=== PATIENT | male | born 1940 | race Caucasian/White ===

== ENCOUNTER 2020-08-25 07:23 | Inpatient (IN) | payer MEDICARE, OTHER ==
[~2020-08-25] VITALS: Ht 177.8 cm; Wt 97.2 kg
[~2020-08-25 07:23] MED LIST: CIPRO500 MG PO; DIABETIC TUSSI PO; GABA100 PO; INSLIS75I SC; INSULANPEN SC; LOSA50 PO; Zithromax250 MG PO
[2020-08-25] MEDS ORDERED: Ventolin/Prove6.7 GM INH (07:43)
[2020-08-25] MEDS ORDERED: AMLODIPINE BESYL5 MG PO (07:44)
[2020-08-25] MEDS ORDERED: CELEXA10 MG PO (07:45)
[2020-08-25] MEDS ORDERED: GABA100 PO (07:46)
[2020-08-25] MEDS ORDERED: TAMSULOSIN HCL0.4 M1 PO (07:46)
[2020-08-25] MEDS ORDERED: BASAGLAR K100 UNIT/8 SC (07:47)
[2020-08-25] MEDS ORDERED: LEVO-T100 MC1 PO (07:48)
[2020-08-25 08:18] LABS: BASOPHILS ABSOLUTE AUTO 0.01 K/mm3 (0.00-0.23); BASOPHILS PERCENT AUTO 0 % (0-2); EOSINOPHILS PERCENT AUTO 0 % (0-6); Hematocrit 37.8 % (37.0-53.0); Hemoglobin 12.3 g/dL (13.5-17.5); IMMATURE GRAN ABSOLUTE AUTO 0.04 K/mm3 (0.00-0.10); IMMATURE GRAN PERCENT AUTO 0 % (0-1); LYMPHOCYTES PERCENT AUTO 4 % (21-46); MONOCYTES ABSOLUTE AUTO 0.57 K/mm3 (0.16-1.47); MONOCYTES PERCENT AUTO 5 % (4-13); Mean Corpuscular HGB 30.1 pg (26.0-34.0); Mean Corpuscular HGB Conc 32.5 g/dL (31.5-36.5); Mean Corpuscular Volume 92 fL (80-100); Mean Platelet Volume 11.6 fL (9.1-12.4); NEUTROPHILS ABSOLUTE AUTO 9.96 K/mm3 (1.96-9.15); NEUTROPHILS PERCENT AUTO 91 % (41-73); Platelet Count 133 K/mm3 (150-400); RDW Coefficient Variation 14.4 % (11.7-14.2); RDW Standard Deviation 48.8 fL (35.1-46.3); Red Blood Cell Count 4.09 M/mm3 (4.30-5.90); White Blood Cell Count 10.98 K/mm3 (4.00-11.30)
[2020-08-25 08:56] LABS: Albumin, Blood 2.7 g/dL (3.4-5.0); Albumin/Globulin Ratio 0.7 (0.8-1.8); Bilirubin, Total 0.9 mg/dL (0.1-1.0); Bun/Creatinine Ratio 16.4 (12.0-20.0); Calcium, Blood 9.9 mg/dL (8.5-10.1); Creatinine, Blood 2.14 mg/dL (0.60-1.20); Potassium, Blood 4.1 mmol/L (3.5-5.5); Thyroid Stimulating Hormone 3.91 uIU/mL (0.360-4.800); Total Protein, Blood 6.7 g/dL (6.4-8.2)
[2020-08-25 09:11] LABS: Influenza A, PCR NEGATIVE (NEGATIVE); Influenza B, PCR NEGATIVE (NEGATIVE); Resp Syncytial Virus, PCR NEGATIVE (NEGATIVE); SARS-Cov-2 (COVID-19) PCR, MMC NEGATIVE (NEGATIVE)
[2020-08-25 09:14] LABS: Troponin I 2.35 ng/mL (0.000-0.040)
[2020-08-25 09:49] LABS: Creatine Kinase MB 29.6 ng/mL (0.0-3.6)
[2020-08-25 09:59] LABS: Creatine Kinase MB Index 1.7 (0.0-4.0)
[2020-08-25 10:59] LABS: International Normalized Ratio 0.99; Prothrombin Time Results 10.6 Sec (9.7-11.5)
--- NOTE | 2020-08-25 11:43 | NUR ---
Echocardiogram using 0.50ml of Definity contrast performed.
--- NOTE | 2020-08-25 14:07 | NUR ---
ADMIT HX UNABLE TO INPUT FULL ADMIT HX D/T PT LETHARGY. PT UNABLE TO ANSWER QUESTIONS AT THIS TIME.
--- NOTE | 2020-08-25 15:16 | NUR ---
PHYSICIAN UPDATED PHYSICIAN UPDATED THAT PT REFUSING SECOND IV ACCESS AT THIS TIME AND INFORMED OF CRITICAL LAB VALUE. INSTRUCTED TO HOLD HEPARIN GTT AT THIS TIME AND ADMINISTER IV FLUIDS PER ORDERS. NO OTHER ORDERS AT THIS TIME.
--- NOTE | 2020-08-25 17:52 | NUR ---
UPDATE PHYSICIAN UPDATED TO RUN CURRENT NS BAG AT WO AND THEN RESTART HEPARIN GTT. SEE EMAR.
--- NOTE | 2020-08-25 18:30 | NUR ---
SHIFT SUMMARY PT ALERT AND ORIENTED X 4. CONFUSED AT TIMES. AGGITATED AT TIMES. REFUSED INSERTION OF SECOND IV. PHYSICIAN NOTIFIED. BED ALARM IN PLACE. PT ABLE TO TURN SELF IN BED. DEPENDS IN PLACE. URINAL AT BEDSIDE. HR STABLE. BP STABLE. HEPARIN GTT, SEE EMAR. OXYGEN SATURATION MAINTAINED ABOVE 95% ON RA. PHYSICIAN NOTIFIED OF CRITICAL TROPONIN. SEE EHR. NO CP OR PRESSURE. WILL CONTINUE TO MONITOR UNTIL REPORT GIVEN TO NIGHTSHIFT RN.
--- NOTE | 2020-08-25 21:26 | NUR ---
CALLED [facility] REGARDING CRITICAL VALUE FOR TROPONIN OF 3.980. ORDERS WERE TO REDRAW LABS 6-8 HOURS AFTER LAST DRAW.
--- NOTE | 2020-08-25 22:48 | NUR ---
TALKED TO BEAU SILK PRESSER REGARDING REDNESS, ITCH, AND PAIN IN INGUNAL AND UNDER FOLDS. VERBAL ORDER FOR MICONAZORB GIVEN BID, PRN.
[2020-08-26 02:40] LABS: BASOPHILS ABSOLUTE AUTO 0.03 K/mm3 (0.00-0.23); BASOPHILS PERCENT AUTO 0 % (0-2); EOSINOPHILS PERCENT AUTO 1 % (0-6); Hematocrit 30.8 % (37.0-53.0); IMMATURE GRAN ABSOLUTE AUTO 0.03 K/mm3 (0.00-0.10); IMMATURE GRAN PERCENT AUTO 0 % (0-1); LYMPHOCYTES ABSOLUTE AUTO 1.16 K/mm3 (0.84-5.20); LYMPHOCYTES PERCENT AUTO 13 % (21-46); MONOCYTES ABSOLUTE AUTO 0.64 K/mm3 (0.16-1.47); MONOCYTES PERCENT AUTO 7 % (4-13); Mean Corpuscular HGB Conc 32.5 g/dL (31.5-36.5); Mean Corpuscular Volume 93 fL (80-100); NEUTROPHILS ABSOLUTE AUTO 7.31 K/mm3 (1.96-9.15); NEUTROPHILS PERCENT AUTO 79 % (41-73); Platelet Count 142 K/mm3 (150-400); RDW Coefficient Variation 14.5 % (11.7-14.2); RDW Standard Deviation 49.5 fL (35.1-46.3); Red Blood Cell Count 3.33 M/mm3 (4.30-5.90); White Blood Cell Count 9.27 K/mm3 (4.00-11.30)
[2020-08-26 02:58] LABS: Albumin, Blood 2.1 g/dL (3.4-5.0); Albumin/Globulin Ratio 0.6 (0.8-1.8); Bilirubin, Total 0.7 mg/dL (0.1-1.0); Bun/Creatinine Ratio 21.1 (12.0-20.0); Creatinine, Blood 2.09 mg/dL (0.60-1.20); Globulin, Blood 3.3 g/dL (2.2-4.0); Magnesium, Blood 1.7 mg/dL (1.6-2.4); Potassium, Blood 4.2 mmol/L (3.5-5.5); Total Protein, Blood 5.4 g/dL (6.4-8.2)
--- NOTE | 2020-08-26 03:30 | NUR ---
CRITICAL APTT VALUE; CALLED [facility]; ORDER TO STOP HEPARIN; STOPPED AT 0320. MARYDER TO HOLD HEPARIN DRIP FOR 1 HOURS THEN RESTART AT 13 UNITS/KG/HR OR 24.4ML/HR.
--- NOTE | 2020-08-26 05:47 | NUR ---
SHIFT SUMMARY PT IS ALERT WITH SOME CONFUSION AND FORGETFUL AT SOMETIMES. PT IS AGITATED MOST TIMES AND REFUSING AND RESISTIVE TO CARE. YELLING AND CURSING AT STAFF. PT IS REFUSING BEING REPOSITIONED. HEAT PAD WAS APPLIED TO PTS BACK DUE TO SORE BACK BUT DOES NOT WANT TO BE TURNED. PT USES URINAL WITH SMALL AMOUNTS OF K[place] URINE, ATTENDS IN PLACE. REDNESS IN SCROTUM AREA, REDNESS AND ABRASIONS IN FOLDS UNDER BELLY. ABDOMEN VERY DISTENDED. VITALS ARE STABLE AND SATS >92% ON ROOM AIR. LEGS ARE VERY WEAK AND HAS TROUBLE LIFTING THEM PLACING PILLOWS UNDER LEGS. HEPARIN DRIP IS INFUSING.
--- NOTE | 2020-08-26 06:38 | NUR ---
PTS STATES HAVING TROUBLE BREATHING. SATS ARE 98% ON ROOM AIR. BP 143/80 HR 94. LUNG SOUNDS ARE DIMINISHED. RESP 24.
--- NOTE | 2020-08-26 07:37 | NUR ---
pt laying in bed, awake a/ox, was reported he will have some periods of confusion, not cooperative with care, follows commands at times, lungs are dim t/o, he wasn't taking deep breaths, is on r/a, reports productive cough, hrr, tele in place running sr with occ pvc, no edema noted, ppp faint, radial is strong, iv to lac infusing heperin gtt as ordered, btx, hypoactive, abd very distendeed, semi firm, denies discomfort, voids vis urinal, attends in place, reports some pink under folds, but pt isn't cooperative with complete assessment, unable to move right foot, or wont, argumentative about everything asked of him, pp faint, tommy, call light in reach.
--- NOTE | 2020-08-26 11:03 | NUR ---
Pt resting in bed upon arrival. Pt reports intermittent pain in his left chest. Pt unable to rate pain on scale of 1-10. FLACC score of 5/10 as evidenced by groaning, facial grimacing, and Pt holding his breath when pain is occuring. Pt appears willing for conversation. Engaged in therapeutic listening as Pt reports concerns regarding being in the hospital away from his "puppy". Pt reports his caregiver is caring for the dog while in the hospital. Continued therapeutic listening. Engaged in discussion regarding code status. Educated Pt on life sustaining measures including risk factors and implications of CPR. Pt reports wishes are to remain a full code. Pt states "I have grandbabies to live for". Continued therapeutic listening as Pt shares his jessica for his grand children. Pt briefly discusses negative feelings for his daughter. Pt also reports having other children but has not had contact with them in quite some time. Pt requesting Tylenol for pain. Ended visit to allow Pt to rest. Spoke with Bedside EVELIA Merrill, discussed case, and relayed Pt's request for Tylenol. Palliative Care will remain available.
--- NOTE | 2020-08-26 17:57 | NUR ---
pt has been made medical status with tele, report was given to Renea ALTAMIRANO. pt being taken to 356 via bed with all his belongings with landscaper in attendence.
--- NOTE | 2020-08-26 19:23 | NUR ---
1805 RECEIVED PT TO RM 356 VIA GURNEY FROM PCU 11. PT ABLE TO STAND PIVOT TO TX TO BED. PT WEAK AND UNSTEADY. PT IS DIFFICULT TO GET TO BE COMPLIANT WITH CARE. BED ALARM SET FOR SAFETY. REQUESTED URINAL WHEN GETTING TO RM; GIVEN. BUT THEN PT OOB, SETTING BED ALARM OFF, WANTING TO GO TO [facility]. BSC PROVIDED, PT UNABLE TO AMBULATE AT ALL. PER REPORT, PT USES MOTORIZED SCOOTER AT HOME TO GET AROUND. PT ALSO REPORTED THAT HE HAD A 4 PRONG CANE IN PCU. NOTIFIED PCU X3, WITH NO RESULTS. THIS RN WENT DOWN TO DIRTY RM TO LOOK FOR CANE; DID NOT SEE CANE IN RM. PT VERY UPSET THAT CANE WAS NOT FOUND DOWN THERE. REPORT GIVEN TO ONCOMING RN.
--- NOTE | 2020-08-27 06:38 | NUR ---
SHIFT SUMMARY- PT. TRANSER FROM PCU YESTERDAY DURING DAY SHIFT. A&O, FORGETFUL AT TIMES. HAD NO COMPLAINTS OF PAIN OR DISCOMFORT T/O THE NIGHT. PT. VERY WEAK, 1-2 ASSIST TO BSC W/WALKER, USES URINAL IN BED W/ASSISTANCE. ON RA, VSS. PT. ANTICIPATING D/C TO HOME TODAY. CALL LIGHT WITHIN REACH, SIDE RAILS UPX2, AND BED ALARM ON FOR SAFETY. WILL CONT TO MONITOR.
[2020-08-27] MEDS ORDERED: ATOR40TA PO (11:23)
[2020-08-27] MEDS ORDERED: Aspirin EC81 MG PO (11:23)
[2020-08-27] MEDS ORDERED: FURO20 PO (11:24)
[2020-08-27] MEDS ORDERED: METO25ER PO (11:24)
[2020-08-27] MEDS ORDERED: POTA10T PO (11:24)
--- NOTE | 2020-08-27 14:10 | NUR ---
DISCHARGE PT DISCHAGED TO HOME WITH HOME HEALTH. PT FRIEND PICKED HIM UP TODAY VIA WC. PT IV DC'D. PT VERY FRSUTRATED ABOUT HIS CANE THAT WAS NEVER FOUND AT PCU OR ED. THIS RN CALLED THE PCU AND ER TODAY, BUT THEY DONT HAVE THE PATIENT CANE. PHYSICAL THERAPIST PROVIDED A CANE FOR THIS PT. PT GIVEN INSTRUCTION, PROVIDED DISCHARGE PACKET. PT EDUCATED ABOUT HIS MEDICATIONS. PT EDUCATED FOR ANY CONCERNS FU WITH HIS PCP, BUT HE DOES NOT SEEM TO KNOW THE NAME OF HIS PCP. EDUCATED ABOUT IF WORSENING SYMPTOMS OR CONCERNS GO TO ER.
== END 2020-08-27 13:58 | disposition home health service (06) | DRG 281 ==
LOC: ER 07:23 → PCU 10:24 → MEDS 08-26 18:05
PROVIDERS: Emergency Medicine; Nurse Practitioner Acute Care; ADMIT Internal Medicine
DX: I21.4 Non-ST elevation (NSTEMI) myocardial infarction (principal); I50.22 Chronic systolic (congestive) heart failure; M62.82 Rhabdomyolysis; N17.9 Acute kidney failure, unspecified; I13.0 Hypertensive heart and chronic kidney disease with heart failure and stage 1 through stage 4 chronic kidney disease, or unspecified chronic kidney disease; Z20.822 Contact with and (suspected) exposure to COVID-19; D69.6 Thrombocytopenia, unspecified; N18.9 Chronic kidney disease, unspecified; E11.22 Type 2 diabetes mellitus with diabetic chronic kidney disease; N40.0 Benign prostatic hyperplasia without lower urinary tract symptoms; E78.5 Hyperlipidemia, unspecified; E03.9 Hypothyroidism, unspecified; J44.9 Chronic obstructive pulmonary disease, unspecified; W19.XXXA Unspecified fall, initial encounter; E66.9 Obesity, unspecified; Z68.28 Body mass index [BMI] 28.0-28.9, adult; Z91.14 Patient's other noncompliance with medication regimen; Z79.4 Long term (current) use of insulin; Z87.891 Personal history of nicotine dependence
CPT/HCPCS: 0241U; 36415; 71045; 72070; 72100; 80053; 82550; 82553; 82947; 83735; 83880; 84443; 84484; 85025; 85610; 85730; 93005; 93010; 96365; 96375; 96376; 97110; 97162; 97166; 97530; 97535; 99285-25; A9270; C8929; J1644; J1940; J7030; Q9957

== ENCOUNTER 2020-08-30 18:52 | Emergency (ER) | payer MEDICARE, OTHER ==
[~2020-08-30] VITALS: Ht 177.8 cm; Wt 90.7 kg
== END 2020-08-30 23:48 | disposition left against medical advice (07) ==
LOC: ER 18:52
DX: R53.1 Weakness (principal); R14.0 Abdominal distension (gaseous); Z79.899 Other long term (current) drug therapy; Z79.4 Long term (current) use of insulin
CPT/HCPCS: 36415; 71045; 80053; 81001; 83690; 83735; 84484; 93005; 93010; 99285-25

== ENCOUNTER 2020-09-08 05:39 | Emergency (ER) | payer MEDICARE, OTHER ==
[~2020-09-08] VITALS: Ht 177.8 cm; Wt 90.7 kg
[~2020-09-08 05:39] MED LIST changes: +AMLODIPINE BESYL5 MG PO; +ATOR40TA PO; +Aspirin EC81 MG PO; +BASAGLAR K100 UNIT/8 SC; +CELEXA10 MG PO; +FURO20 PO; +LEVO-T100 MC1 PO; +METO25ER PO; +POTA10T PO; +TAMSULOSIN HCL0.4 M1 PO; +Ventolin/Prove6.7 GM INH
[2020-09-08 06:22] LABS: BASOPHILS ABSOLUTE AUTO 0.03 K/mm3 (0.00-0.23); BASOPHILS PERCENT AUTO 0 % (0-2); EOSINOPHILS PERCENT AUTO 1 % (0-6); Hematocrit 33.8 % (37.0-53.0); Hemoglobin 10.7 g/dL (13.5-17.5); IMMATURE GRAN ABSOLUTE AUTO 0.02 K/mm3 (0.00-0.10); IMMATURE GRAN PERCENT AUTO 0 % (0-1); LYMPHOCYTES ABSOLUTE AUTO 0.62 K/mm3 (0.84-5.20); LYMPHOCYTES PERCENT AUTO 7 % (21-46); MONOCYTES ABSOLUTE AUTO 0.47 K/mm3 (0.16-1.47); MONOCYTES PERCENT AUTO 5 % (4-13); Mean Corpuscular HGB 29.8 pg (26.0-34.0); Mean Corpuscular HGB Conc 31.7 g/dL (31.5-36.5); Mean Corpuscular Volume 94 fL (80-100); Mean Platelet Volume 12.9 fL (9.1-12.4); NEUTROPHILS ABSOLUTE AUTO 8.28 K/mm3 (1.96-9.15); NEUTROPHILS PERCENT AUTO 87 % (41-73); Platelet Count 138 K/mm3 (150-400); RDW Coefficient Variation 14.5 % (11.7-14.2); RDW Standard Deviation 49.4 fL (35.1-46.3); Red Blood Cell Count 3.59 M/mm3 (4.30-5.90); White Blood Cell Count 9.52 K/mm3 (4.00-11.30)
[2020-09-08 06:34] LABS: Albumin, Blood 2.8 g/dL (3.4-5.0); Albumin/Globulin Ratio 0.7 (0.8-1.8); Bilirubin, Total 0.8 mg/dL (0.1-1.0); Bun/Creatinine Ratio 13.2 (12.0-20.0); Calcium, Blood 9.7 mg/dL (8.5-10.1); Creatinine, Blood 2.27 mg/dL (0.60-1.20); Globulin, Blood 4.2 g/dL (2.2-4.0); Potassium, Blood 4.6 mmol/L (3.5-5.5); Troponin I 0.227 ng/mL (0.000-0.040)
[2020-09-08] MEDS ORDERED: NITR.4SL SL (07:50)
== END 2020-09-08 11:05 | disposition home or self-care (01) ==
LOC: ER 05:39
PROVIDERS: Emergency Medicine
DX: R07.9 Chest pain, unspecified (principal); I50.9 Heart failure, unspecified; J44.9 Chronic obstructive pulmonary disease, unspecified; Z79.899 Other long term (current) drug therapy
CPT/HCPCS: 71045; 80053; 83880; 84484; 85025; 93005; 93010; 96374; 99285-25; J1940

== ENCOUNTER 2020-09-09 22:54 | Emergency (ER) | payer MEDICARE, OTHER ==
[~2020-09-09] VITALS: Ht 177.8 cm; Wt 86.2 kg
[~2020-09-09 22:54] MED LIST changes: +NITR.4SL SL
== END 2020-09-10 06:10 | disposition home or self-care (01) ==
LOC: ER 22:54
DX: M25.552 Pain in left hip (principal); I10 Essential (primary) hypertension; Z79.4 Long term (current) use of insulin; Z79.82 Long term (current) use of aspirin; Z79.899 Other long term (current) drug therapy
CPT/HCPCS: 73501; 96374; 96375; 99283-25; J2250; J2270; J2405

== ENCOUNTER 2020-09-13 17:38 | Observation (INO) | payer MEDICARE, OTHER ==
[~2020-09-13] VITALS: Ht 165.1 cm; Wt 93.1 kg
[2020-09-13 19:46] LABS: BASOPHILS ABSOLUTE AUTO 0.03 K/mm3 (0.00-0.23); BASOPHILS PERCENT AUTO 0 % (0-2); EOSINOPHILS ABSOLUTE AUTO 0.16 K/mm3 (0.00-0.68); EOSINOPHILS PERCENT AUTO 2 % (0-6); Hematocrit 28.7 % (37.0-53.0); Hemoglobin 9.3 g/dL (13.5-17.5); IMMATURE GRAN ABSOLUTE AUTO 0.02 K/mm3 (0.00-0.10); IMMATURE GRAN PERCENT AUTO 0 % (0-1); LYMPHOCYTES ABSOLUTE AUTO 0.73 K/mm3 (0.84-5.20); LYMPHOCYTES PERCENT AUTO 11 % (21-46); MONOCYTES ABSOLUTE AUTO 0.55 K/mm3 (0.16-1.47); MONOCYTES PERCENT AUTO 8 % (4-13); Mean Corpuscular HGB 29.6 pg (26.0-34.0); Mean Corpuscular HGB Conc 32.4 g/dL (31.5-36.5); Mean Corpuscular Volume 91 fL (80-100); NEUTROPHILS ABSOLUTE AUTO 5.29 K/mm3 (1.96-9.15); NEUTROPHILS PERCENT AUTO 78 % (41-73); RDW Coefficient Variation 14.7 % (11.7-14.2); RDW Standard Deviation 48.7 fL (35.1-46.3); Red Blood Cell Count 3.14 M/mm3 (4.30-5.90); White Blood Cell Count 6.78 K/mm3 (4.00-11.30)
[2020-09-13 20:01] LABS: Mean Platelet Volume 13.1 fL (9.1-12.4); Platelet Count 139 K/mm3 (150-400)
[2020-09-13 20:03] LABS: Albumin, Blood 2.6 g/dL (3.4-5.0); Albumin/Globulin Ratio 0.6 (0.8-1.8); Bilirubin, Total 0.6 mg/dL (0.1-1.0); Bun/Creatinine Ratio 14.5 (12.0-20.0); Calcium, Blood 9.8 mg/dL (8.5-10.1); Creatinine, Blood 2.28 mg/dL (0.60-1.20); Potassium, Blood 5.8 mmol/L (3.5-5.5); Total Protein, Blood 6.6 g/dL (6.4-8.2)
[2020-09-13 21:31] LABS: Bun/Creatinine Ratio 13.2 (12.0-20.0); Calcium, Blood 9.3 mg/dL (8.5-10.1); Creatinine, Blood 2.34 mg/dL (0.60-1.20); Potassium, Blood 4.5 mmol/L (3.5-5.5)
--- NOTE | 2020-09-13 23:24 | NUR ---
Transfer report from [facility] COMMUNITY SERVICE TECHNICIAN on 80 year old Male DNR status with Cirrhosis CHF HX of refusing cares. Elevated ammonia level, refused lactulose in ER, refused EKG. Recent DC on 08/27/20 reported. 3 plus pitting edema ascites co abd & le pain . ABD CT done. Await admission.
--- NOTE | 2020-09-14 04:46 | NUR ---
PT admitted to medical floor obs status with liver failure abd pain acute ascites & CHF. He lives at [facility] & he has hx of refusing medical therapy & he refused lab draw this AM. He cusses at staff intermittantly & apololizes afterward.He had 1 episode of acute abd pain relieved by 50 mcg of fentanyl. Severe abd distention, had abd CT in ER. Had refused lactulose for elevated ammonia level & ref EKG. Needs assist with toileting. Incontinent x 1
--- NOTE | 2020-09-14 08:24 | NUR ---
PATIENT REFUSED LATEST LAB DRAW ATTEMPT.
--- NOTE | 2020-09-14 10:27 | NUR ---
Pt sitting on edge of bed upon arrival. Bedside RN Iris offering medications. Pt appears to be drifting off to sleep with eyes closing. Difficult to have conversation at this time. Iris reports Pt recently received pain medication. Will attempt to visit with Pt at a later time. Reviewed chart and discussed case with Dr Hinkle. Admitting provider notes suggest Pt wants to focus on comfort. Attempted to call Pt's daughter Beverly listed as NOK. No voicemail available to leave message. Called and spoke with Pt's caregiver Marta. Marta reports Pt's lives at [facility]. Marta reports providing care for Pt 3 hours and 10 minutes a day 7 days a week. She reports Pt has had multiple falls and has dicussed with staff at [facility]. According to Marta [facility] also feels Pt needs a higher level of care. Marta reports calling Pt's casemanager Karey Benjamin at [facility] reporting Pt's needs. Marta states Pt has been non compliant with his medications since April when she started providing care for him. Pt has not opened his new prescriptions that he D/C home from his last hospital stay. Marta states his PCP Dr Sandy has recommended hospice. Marta reports Pt requires assistance with transfers, ambulation, bathing, and dressing. She states Pt has refused bathing for a month. Pt has not been coming down to facility dining room for meals. Marta also reports Pt has a dog that he holds very dear to him. Marta expresses appreciation of call. PPS 50% ADLs 4/6 Plan: Palliative Care will F/U with Pt regarding goals of care including the option for hospice. Palliative Care will remain available.
--- NOTE | 2020-09-14 13:52 | NUR ---
F/U visit this afternoon. Pt resting in bed with his eyes closed upon arrival. Pt opens his eyes with verbal stimuli. Pt appears painful as evidenced by constant repositioning of buttocks and facial grimacing. Pt reports pain in coccyx area. Pt does not rate pain. Attempted to confirm his wishes that he stated to admitting provider. Pt does not engage in conversation regarding goals of care. Pt appears to be on the cusp of meeting criteria for hospice with his cirrhosis of the liver alone. His medical history, comorbidites, his unwillingness to accept care, and cirrhosis of the liver appears to qualify him for hospice services. Pt would benefit from hospice evaluation upon discharge to assist with determination of meeting criteria. Spoke with Dr Hinkle and discussed case. Dr Hinkle is requesting an ethics consult be placed to assist with determining an appropriate plan of care due to Pt's inability to tell staff his wishes. Called [facility] and spoke with [facility]. Requested contact information for NOK. Cross reports staff member who has this information is unavailable at this time and will have staff member call Palliative Care. Placed Ethics consult per V/O from Dr Hinkle. Palliative Care will remain available.
--- NOTE | 2020-09-14 14:49 | NUR ---
Ethics consult order reviewed and processed. Chart notes perused and conversation facilitated with palliative care regarding the code status, and complex medical history of the principal. He is currently unbefriended, lacks an advance care planning instrument, and is suffering from incapacitation. Per the CLEANING CREW MEMBER's note relating to the principals original ED presentation, and reportedly before his mentation was compromised, the patient emphatically stated his wishes to forgo aggressive or life-saving therapy, and elect for a hospice enrollment. To support the choice, autonomy and dignity of the Mr Deckre, I would recommend that we accomodate him accordingly and without reservation. Thank you for this consult. Clarence Gonzalez Th.D.
--- NOTE | 2020-09-14 19:42 | NUR ---
SHIFT SUMMARY: A&O X 2, IRRITABLE AND REFUSING TREATMENT. C/O SEVERE PAIN IN BILATERAL HIPS AND LESSER PAIN IN VERY DISTENDED ABDOMEN; MEDICATED WITH FENTANYL AND OXYCODONE EARLIER IN THE DAY, WHICH GAVE LITTLE RELIEF. HAS DIFFICULTY FOLLOWING DIRECTIONS. REFUSED ALL MORNING MEDICATION, EVEN WHEN GIVEN ADEQUATE TIME TO TAKE THEM. HAS DIFFICULT TIME FINDING COMFORTABLE POSITION. BECAME AGITATED THIS AFTERNOON WHEN HE NEEDED TO USE BR; GOT PT UP WITH FWW TO BR, BUT IS UNABLE TO STAND FOR VERY LONG, SAT TWICE ON TOILET BUT DID NOT VOID OR HAVE BM. DIFFICULT TO GET HIM BTB, GOT MORE AGITATED THE MORE WE TRIED TO HELP, GETTING UP AND DOWN WITHOUT ASSISTANCE AND NEARLY FALLING. PALLIATIVE CARE VISITED A FEW TIMES TODAY. RECEIVED ORDER THIS AFTERNOON TO PLACE PT ON COMFORT CARE PER HIS WISHES. GAVE ROXANOL AND ATIVAN AND PT WAS ABLE TO REST FOR ~ 2 HOURS.
--- NOTE | 2020-09-15 03:47 | NUR ---
SHIFT SUMMARY: COMFORT CARE STATUS. PT IS A/O TO SELF. UNAWARE OF LIMITATIONS. ATTEMPTS TO GET UP OOB INDEPENDENTLY, PT ATTEMPTS TO STAND W/ASSIST AND IS TOO WEAK TO TAKE STEPS OR DIRECTOR SUPPLY PLACE FOR MORE THAN ABOUT 10 SECONDS. PT ASSISTED BACK TO BED. INCONTINENT OF URINE. ABD LARGE, ROUND, DISTENDED. HOB REMAINS ELEVATED FOR COMFORT. MED FOR PAIN AND AGITATION X 1 W/GOOD RESULTS. BED LOW, BED ALARM ON, SIDE RAILS UP X 3. PT SLEEPING MOST OF THE NIGHT. WCTM.
--- NOTE | 2020-09-15 10:13 | NUR ---
Comfort Care Visit Pt reporting significant pain and unable to verbalize location or pain number. FLACC score of 7/10. Moderate anxiety and mild dyspnea noted. Discussed draining fluid from abdomen with Pt for comfort. Pt is agreeable. Spoke with Dr Salas and discussed case. Dr Salas will place order for paracentesis. Spoke with Bedside RN Johanna, discussed case, and reviewed comfort medications. Johanna will offer Roxanol and Ativan. Palliative Care will remain available for symtom management and supportive visits.
[2020-09-15 11:50] LABS: Source, Urine Catheter
[2020-09-15 11:57] LABS: Bilirubin, Urine Neg (Neg); Blood, Urine 3+ (Neg); Glucose Qualitative, Urine Neg (Neg); Ketones, Urine Neg (Neg); Leukocyte Esterase, Urine Neg (Neg); Nitrite, Urine Neg (Neg); Protein, Urine 4+ (Neg); Urobilinogen, Urine NORM (Normal)
[2020-09-15 12:02] LABS: Appearance, Urine Clear (Clear); Color, Urine Yellow (P-Yellow)
[2020-09-15 12:04] LABS: Bacteria Few /hpf; Granular Casts 0-2 /lpf (0); Squamous Epithelial Cells Few /hpf (Few); White Blood Cells, Urine 0-2 /hpf (0-5)
[2020-09-15 13:50] LABS: International Normalized Ratio 1.01; Prothrombin Time Results 10.9 Sec (9.7-11.5)
--- NOTE | 2020-09-15 18:14 | NUR ---
SHIFT SUMMARY PT AOX1. PLACED COREY CATHETER TODAY- PT TOLERATED WELL AND DRAINING AND PATENT. PT FELT BETTER AFTER. PT ALSO HAD PARACENTESIS TODAY- TOOK OUT 4L OUT. PT MEDICATED PER EMAR. BED IS IN THE LOWEST POSITION AND CALL LIGHT WITHIN REACH
--- NOTE | 2020-09-16 00:31 | NUR ---
COMFORT CARE: PT WAKES UP TO SOUND, TOUCH, OR LIGHTS. TAKES A MINUTE BEFORE BEING ABLE TO ANSWER QUESTIONS. DENIES PAIN OR ANXIETY. HAS DIFFICULTY REMAINING AWAKE OR STAYING FOCUSED WHEN TALKING. PT IS RESTING, EYES CLOSED, SNORING. HOB UP 30 DEGREES FOR COMFORT. F/C PATENT AND DRAINING URINE TO GRAVITY. WCTM.
--- NOTE | 2020-09-16 05:33 | NUR ---
SHIFT SUMMARY: COMFORT CARE STATUS. PT HAS SLEPT THROUGH THE NIGHT. DENIES PAIN AND APPEARS PLEASANT AND CALM WHILE AWAKE. F/C PATENT AND DRAINING CONCENTRATED APPEARING URINE TO GRAVITY. PT REFUSES PO INTAKE TONIGHT. FLUIDS OFFERED AND IN REACH AT BEDSIDE. BED LOW, ALARM ON, SIDE RAILS UP X 3. PT HAS MADE NO ATTEMPTS TO GET UP INDEPENDENTLY. WCTM.
--- NOTE | 2020-09-16 11:09 | NUR ---
PT C/O OF NOT HAVING BOWEL MOVEMENTS, RECEIVED AN ORDER TO GIVE SUPPOSITORY. PT RECEIVED IT.PT CURSING AND FRUSTRATED. TRIED TO EXPLAIN THE PT ABOUT DRINKING WATER AND EDUCATED THE PT ABOUT THE MEDICATION; HOWEVER PT ALERT TO SELF ONLY AND NOT UNDERSTANDING.
--- NOTE | 2020-09-16 15:57 | NUR ---
[facility] Care comfort care visit - Pt sleeping upon entering room. He appears sl restless in sleep. I did not disturb him. Case conferenced with pt's RN, who reports chief c/o pt is constipation. She has given him a suppository and prune juice and will f/u with bowel regime. Discussed other meds and s/s management. CM cont to work on d/c planning per RN. No definite plan or placement in place currently.
--- NOTE | 2020-09-16 17:23 | NUR ---
SHIFT SUMMARY PT ALERT TO SELF ONLY. PT IS A FEEDER, AND BEDREST FOR NOW; NOT ABLE TO TOLERATE WALKING TO [facility] PER REPORT. PT C/O OF CONSTIPATION- MEDICATED PER EMAR. PT ALSO MEDICATED FOR PAIN PER EMAR. BED IS IN THE LOWEST POSITION AND CALL LIGHT WITHIN REACH
--- NOTE | 2020-09-16 19:15 | NUR ---
ASSUMED CARE RECEIVED REPORT FROM EVELIA BONDS. PT RESTING QUIETLY, IN NO ACUTE DISTRESS. NO ACUTE NEEDS ASSESSED. CALL LIGHT, POSSESSIONS IN REACH, BED IN LOW POSITION.
--- NOTE | 2020-09-17 06:16 | NUR ---
MAINTENANCE JOB TITLES SUMMARY PT ASLEEP, NO S/S ACUTE DISTRESS NOTED. APPEARS COMFORTABLE AND AT EASE. NO ACUTE CHANGES IN CONDITION TO REPORT OVERNIGHT. NO ACUTE NEEDS ASSESSED AT THIS TIME. CALL LIGHT, POSSESSIONS IN REACH, BED IN LOW POSITION. WILL CONTINUE TO PROVIDE FOR PT COMFORT UNTIL REPORT GIVEN TO ONCOMING RN.
--- NOTE | 2020-09-17 14:33 | NUR ---
Pt resting in bed with his eyes closed. This RN did not disturb Pt at this time. Pt appears comfortable at this time with no S/S of distress. Spoke with Bedside RN Preethi and discussed case. Review of plan for bowel regimen from previous PC RN. Preethi reports no BM results at this time. Pt has no oders for bowel regimen. Pt medicated with lorazepam earlier today with good results for comfort. Preethi reports Pt may have difficulty with swallowing pills and larg amounts of Miralax. Placed order for Bisacodyl Supp per V/O from Dr Salas. Palliative Care will remain available.
--- NOTE | 2020-09-17 18:35 | NUR ---
PT GIVEN ATIVAN 2X FOR ANXIETY AND ROXANOL 1X FOR PAIN; PT REPORTED NO APPETITE AND REFUSED ALL MEALS SERVED. PT HAD SMALL BM AT 1800. PT REPORTED NO ADDITIONAL CONCERNS AT THIS TIME.
--- NOTE | 2020-09-17 19:15 | NUR ---
ASSUMED CARE RECEIVED REPORT EVELIA COLLINS. PT RESTING, IN NO ACUTE DISTRESS. NO ACUTE NEEDS ASSESSED AT THIS TIME. CALL LIGHT, POSSESSIONS IN REACH.
--- NOTE | 2020-09-18 07:32 | NUR ---
DATA INTEGRATION DEVELOPER SUMMARY PT ASLEEP, IN NO ACUTE DISTRESS. HAS REMAINED COMFORTABLE T/O NIGHT, NO ACUTE DISTRESS NOTED. BED IN LOW POSITION, ALARMS ON. REPORT GIVEN TO EVELIA SAAB.
--- NOTE | 2020-09-18 08:02 | NUR ---
PT SLEEPING DOES NOT APPEAR TO BE IN ANY DISCOMFORT AT THIS TIME
--- NOTE | 2020-09-18 08:02 | NUR ---
PT SLEEPING. DOES NOT APPEAR TO BE IN ANY DISCOMFORT AT THIS TIME.
--- NOTE | 2020-09-18 10:04 | NUR ---
PT SLEEPING IN BED. NO SIGNS OF DISTRESS. BED BATH PREFORMED AROUND 0930 ALONG WITH CATHETER CARE, ATTENDS CHANGE AND REPOSITIONING.
--- NOTE | 2020-09-18 10:42 | NUR ---
Pt resting in bed with his eyes closed. Pt appears comfortable with no S/S of distress at this time. Spoke with Bedside RN Cait and Student Nurse Eliza. Discussed case and reviewed comfort medications. Cait will offer suppository to assist with BM. Palliative Care will remain available.
--- NOTE | 2020-09-18 13:27 | NUR ---
PT ASLEEP IN BED. NO SIGNS OF DISTRESS.
--- NOTE | 2020-09-18 15:04 | NUR ---
PT RESTING IN BED. PT REPORTS PAIN, REPOSITIONED TO RIGHT SIDE.
--- NOTE | 2020-09-18 16:34 | NUR ---
PT SLEEPING IN BED. NO SIGNS OF DISTRESS.
--- NOTE | 2020-09-18 17:08 | NUR ---
SHIFT SUMMARY PT SLEEPING THROUGHOUT THE DAY. BED BATH AND CATHETER CARE COMPLETED. PT REPOSITIONED PRN. WHEN ADMINISTERING MEDICATIONS PT BECAME AGITATED AND STARTED CUSSING. MEDICATED FOR PAIN AND AGITATION PRN PER EMAR. PATENT COREY DRAINING YELLOW URINE. IV DC'D. PT RESTING IN BED WITH CALL LIGHT IN REACH.
--- NOTE | 2020-09-18 19:05 | NUR ---
ASSUMED CARE RECEIVED REPORT FROM EVELIA SAAB. PT RESTING COMFORTABLY, NO S/S DISTRESS NOTED. NO ACUTE NEEDS NOTED. CALL LIGHT, POSSESSIONS IN REACH.
--- NOTE | 2020-09-19 07:00 | NUR ---
PACKING MACHINE CAN FEEDER SUMMARY PT ASLEEP, IN NO ACUTE DISTRESS. APPEARED COMFORTABLE T/O NIGHT, NO ACUTE CHANGES IN CONDITION NOTED. NO ACUTE NEEDS ASSESSED. CALL LIGHT, POSSESSIONS IN REACH, BED IN LOW POSITION. REPORT GIVEN TO EVELIA SERNA.
--- NOTE | 2020-09-19 09:06 | NUR ---
REPORTS AT BEDSIDE. PATIENT SLEEPING AT THIS TIME. NO S/S OF PAIN OR DISTRESS. FALL PRECAUTIONS IN PLACE PER PROTOCOL.
--- NOTE | 2020-09-19 09:07 | NUR ---
PATIENT AWAKE, BUT TOO DROWSY TO ATTEMPT TO FEED. DENIES ANY PAIN OR NEEDS AT THIS TIME. COREY TO GRAVITY.
--- NOTE | 2020-09-19 10:05 | NUR ---
PATIENT REPOSITIONED AND MEDICATED FOR GENERALIZED PAIN WITH 5MG ROXINOL. FALL PRECAUTIONS IN PLACE. DENIES ANY FURTHER NEEDS AT THIS TIME.
--- NOTE | 2020-09-19 15:04 | NUR ---
Pt reports he is "in pain". Unable to give a number. Pt's nurse will try 10mL of roxanol every hour is pat needs it. Dr. Khanna doesn't wish to increase pt's pain medication at this time, she doesnt think he requires and increase in dose, maybe just increase frequeny instead, and could give along with ativan every 4th hour.
--- NOTE | 2020-09-19 16:45 | NUR ---
PATIENT GIVEN ROXANOL TO TREAT BACK PAIN, REFUSED TO TAKE ATIVAN FOR ANXIETY. ORAL CARE AND CATH CARE COMPLETED. PATIENT REPOSITIONED SUPINE. DENIES ANY FURTHER NEEDS AT THIS TIME.
--- NOTE | 2020-09-19 17:04 | NUR ---
ORAL CARE COMPLETED. PATIENT REPOSITIONED TO R SIDE. WAKES, BUT QUICKLY BACK TO SLEEP. NO S/S OF PAIN OR DISCOMFORT.
--- NOTE | 2020-09-19 18:50 | NUR ---
PATIENT SLEEPING AT THIS TIME. NO S/S OF PAIN OR DISCOMFORT. FALL PRECAUTIONS IN PLACE.
--- NOTE | 2020-09-20 04:02 | NUR ---
SHIFT SUMMARY: COMFORT CARE STATUS. PT ALERT, CONFUSED, FORGETFUL. ORIENTED TO NONE. WEAK ATTEMPTS TO INDEPENDENTLY GET UP OUT OF BED, NOT REDIRECTABLE. BED LOW, BED ALARM ON, SIDE RAILS UP X 3. STIFF AND RESISTENT W/ ALL BED MOBILITY. PT RAISED UP IN BED, PUSHES SELF BACK DOWN. OBSERVED GENTLY PULLING AT F/C TUBING. F/C PATENT AND DRAINING CLEAR YELLOW URINE TO GRAVITY. ABD LARGE, ROUND DISTENDED. PT MOANING. WILL OCCASIONALLY STATE, "I WANT TO GET UP". REFUSED ORAL CARE. MEDICATED FOR PAIN AND ANXIETY W/ GOOD RESULTS. PT APPEARS TO BE SLEEPING MOST OF THE NIGHT.
--- NOTE | 2020-09-20 07:52 | NUR ---
PT IS HAVING MORE SECRETIONS CALLED THE DOCTOR TO GET AN ORDER FOR A SCOPALAMINE PATCH. SUCTION SET UP AND PT RECEIVED ORAL CARE.
--- NOTE | 2020-09-20 10:44 | NUR ---
PT RECEIVED ORAL CARE AND SUCTION.
--- NOTE | 2020-09-20 16:45 | NUR ---
CAREGIVER ELSI AT BEDSIDE. SHE WOULD LIKE A CALL IF PATIENT PASSES. SHE ALSO LEFT A NUMBER FOR PATIENTS BROTHER MAIN ON THE BOARD. PATIENT REMAINS COMFORTABLE, NO S/S OF DISTRESS. PERFORMING FREQUENT ORAL CARE AND SUCTIONING PRN. COREY TO GRAVITY, OUTPUT DECREASING. PATIENT DID NOT TAKE IN ANYTHING PO, VERY SEDATED, MOANS OCCASIONALLY WITH REPOSITIONING.
--- NOTE | 2020-09-20 18:25 | NUR ---
Checked in on patient around 1500 today, he is clean dry, intact. Eyes closed, resp are wet. Pt is no longer responsive. "Sat and held hand with pt for a while. He did squeze my hand with minimal difficulty. No other issues idendtified.
--- NOTE | 2020-09-21 07:12 | NUR ---
SHIFT SUMMARY PT IS AN 80 Y/O FEMALE, ADMITTED FOR LIVER FAILURE AND CURRENTLY ON COMFORT CARE. PT IS UNRESPONSIVE, BEDREST. NO S/S OF PAIN OR DISCOMFORT. SCOPOLOMINE PATCH IN PLACE FOR SECRETIONS. PT RESTED COMFORTABLY THROUGH THE NIGHT. NO ACUTE CHANGES IN PT CONDITION NOTED. REPORT GIVEN TO ONCOMING RN.
--- NOTE | 2020-09-21 14:39 | NUR ---
Checked in on patient this am around 0900. At that time, pt was breathing with short, shallow small breaths. He is no longer concious. No s/s of pain or sod at this time. Nurse continues to administer needed medication. Pt appears to be actively dying. His family was present yesterday, but no one available today. Pt appears relaxed; no complaints.
--- NOTE | 2020-09-21 15:21 | NUR ---
Patient is none responsive to staff. Much gurgling and secretions. Patient repositioned per comfort care protocol Q2hrs and PRN; oral care provided at this time as well with suctioning of the secretions. Thick, yellow secretions noted. Patient appears comfortable. Son it at bedside at this time.
--- NOTE | 2020-09-21 18:33 | NUR ---
Spiritual care note: Bryson's brother, Henry, was at bedside. Jhonathan was solemn at first, but began to open up with gentle marriage counselor. He spoke at length about pt's toubled history and struggles with health issues. Henry appears to accept pt's passing and states he "just hopes it's peaceful." Henry has been present at the -bed of numerous family members and told me about each one. I provided theraputic listening and emotional affirmation to good effect. Pt and family non-restorationist. Pt seems very near end-of-life: non-responsive, breaths very shallow with long pauses and gurgle. Advised Henry that regular visiting hours are suspended for families of the dying. I will remain available.
--- NOTE | 2020-09-21 20:28 | NUR ---
PT's Brother at bedside supportive. Brother calling in Granddtrs & DTR is supposed to be coming from out of town. PT with no s/sx of pain, very pale with HOB up to promote lung expansion. Dany arreola present.
--- NOTE | 2020-09-21 20:54 | NUR ---
Spoke with PT's DTR Ely & she is up near [facility]. She was grieving because She doesn't have a auto to come to see Dying Father. His Brother held his cellphone up to PT's ear & she spoke to him.
--- NOTE | 2020-09-22 00:59 | NUR ---
MEDICATED FOR PAIN & ANXIETY ON COMFORT MEASURES.
--- NOTE | 2020-09-22 03:42 | NUR ---
PT continues on comfort measures with Brother New at bedside who asks if there is any assistance for indigent creamation services. PT nor family have no funds for creamation or burial services. Not a . Medicated for pain anxiety & dyspnea with helpful effect. Scopalimine patch applied behing lt ear for oral secretions.
--- NOTE | 2020-09-22 06:13 | NUR ---
PT's Brother New at bedside & he alerts me no resp no pulse as of 512 AM. Second RN Amanda RN verified with me PT 511. Notified MD Hinkle of expiration. HAd Amanda clinical programmer assist Family to choose mortuary. Brother to notify DTR of expiration.
--- NOTE | 2020-09-22 06:39 | NUR ---
Mortuary here to remove body. PT's Brother New Mcintyre\d at [phone] left as contact number. He has been in contact with PT's DTR Beverly. Personal belongings which were 2 teeshirts & 1 PJ pants sent with PT to mortuary.
== END 2020-09-22 05:12 ==
LOC: ER 17:38 → MEDS 17:39
PROVIDERS: Emergency Medicine; Internal Medicine; Nurse Practitioner Acute Care; ADMIT Internal Medicine
DX: K72.90 Hepatic failure, unspecified without coma (principal); I11.0 Hypertensive heart disease with heart failure; I50.9 Heart failure, unspecified; I10 Essential (primary) hypertension; J44.9 Chronic obstructive pulmonary disease, unspecified; E11.9 Type 2 diabetes mellitus without complications; E03.9 Hypothyroidism, unspecified; F32.9 Major depressive disorder, single episode, unspecified; N40.0 Benign prostatic hyperplasia without lower urinary tract symptoms; B19.20 Unspecified viral hepatitis C without hepatic coma; M16.10 Unilateral primary osteoarthritis, unspecified hip; E78.5 Hyperlipidemia, unspecified; I21.9 Acute myocardial infarction, unspecified; F17.200 Nicotine dependence, unspecified, uncomplicated; F12.90 Cannabis use, unspecified, uncomplicated; Z90.5 Acquired absence of kidney; Z79.4 Long term (current) use of insulin; Z91.19 Patient's noncompliance with other medical treatment and regimen; Z66 Do not resuscitate; Z79.82 Long term (current) use of aspirin; Z51.5 Encounter for palliative care
CPT/HCPCS: 49083; 51701; 74176; 80048; 80053; 81001; 82140; 83690; 85025; 85610; 85730; 96374; 96375; 96376; 99285-25; A9270; G0378; G0480; J2405; J3010